=== PATIENT | male | born 1960 | race Caucasian/White ===

== ENCOUNTER 2020-08-06 18:30 | Emergency (ER) | payer MEDICAID ==
[2020-08-06] MEDS ORDERED: Sodium Chloride 0.9% 2.5 ML Syringe FLUSH PRN (18:55)
[2020-08-06] MEDS ORDERED: Sodium Chloride 0.9% 10 ML Syringe FLUSH PRN (18:55)
[2020-08-06] MEDS ORDERED: Aspirin 81 MG Tab.Chew PO ONE (18:55)
[2020-08-06] MEDS ORDERED: Heparin Sodium 5,000 Units/ML Vial IVPUSH ONE (19:16)
[2020-08-06] MEDS ORDERED: Heparin Sodium/0.45% NaCl 500 ML ONE (19:19)
[2020-08-06] MEDS ORDERED: Heparin Sodium/0.45% NaCl 500 ML IV SCH (19:30)
[2020-08-06 19:50] LABS: BLOOD UREA NITROGEN,BUN 15 mg/dL (7.0-18.0); CARBON DIOXIDE,CO2 22.7 mmol/L (21.0-32.0); CHLORIDE,CL 104 mmol/L (98-107); GLUCOSE RANDOM 143 mg/dL (74-106); POTASSIUM,K 3.7 mmol/L (3.5-5.1); SODIUM,NA 140 mmol/L (136-148)
--- NOTE | 2020-08-06 21:45 | EDM.PDOC ---
ED HPI GENERAL MEDICAL PROBLEM - General Chief Complaint: Chest Pain Stated Complaint: CHEST PAIN, TINGLING Time Seen by Provider: 08/06/20 18:55 - History of Present Illness INITIAL COMMENTS - FREE TEXT/NARRATIVE: CHIEF COMPLAINT(S): Chest pain HISTORY OF PRESENT ILLNESS: This is a 59-year-old man with a past medical history of hiatal hernia, hypertension who comes to the emergency department with a chief complaint of chest pain. The patient states that approximately 5 hours prior to arrival he started to experience severe 10 out of 10 chest pain which she describes as sharp associated with shortness of breath but denies any nausea, vomiting, or diaphoresis. He states that since that time the pain has improved to 3 out of 10. He states that he does feel dizzy but denies any syncope. He states that the pain is not exacerbated by anything and there are no relieving symptoms other than he took a nap and it seemed to improve slightly. He states that he may be having a heart attack. He denies any history of CAD or CHF. He denies any recent travel, recent surgery, prior history of DVT or PE. In addition to this he states that he has been having bright red bloody stools for the past 2 years however it worsened recently. He denies any abdominal pain, hematemesis, bilious emesis. REVIEW OF SYSTEMS: Constitutional: Denies fever, chills. Eyes: Denies eye pain Ears, Nose, Mouth, & Throat: Denies earache Cardiovascular: Positive for chest pain and presyncope Respiratory: Denies shortness of breath Gastrointestinal: Positive for bright red blood in stool. Denies nausea, vomiting, diarrhea, melena, hematemesis, bilious emesis Genitourinary: Denies hematuria Skin:Denies a rash MSK: Denies joint pain Neurological: Denies blurred vision, numbness, tingling, weakness Psychiatric: Denies depression PAST MEDICAL HISTORY: As per history of present illness and as reviewed below otherwise noncontributory. SURGICAL HISTORY: As per history of present illness and as reviewed below otherwise noncontributory. SOCIAL HISTORY: As per history of present illness and as reviewed below otherwise noncontributory. FAMILY HISTORY: As per history of present illness and as reviewed below otherwise noncontributory. EXAMINATION OF ORGAN SYSTEMS/BODY AREAS: Constitutional: Blood pressure was 91/57, heart rate 72, respiratory rate 16 with an oxygen saturation 97% on room air. Temperature 36.1 General: Middle-aged gentleman who is pale appearing but in no acute distress. Psychiatric: Appropriate mood and affect. Eyes: No scleral icterus or conjunctival erythema pupils equal round reactive to light. ENMT: Moist mucous membranes. No pharyngeal erythema Cardiovascular: Regular, rate, and rhythm. No gallops, murmurs, or rubs. Bilateral upper extremity pulses symmetric and intact. No peripheral edema. No JVD. Respiratory: Lungs clear to auscultation bilaterally. No wheezes, rales, or rhonchi. Gastrointestinal: Soft, non-tender, non-distended. Normoactive bowel sounds no rebound or guarding. Genitourinary: No suprapubic tenderness Musculoskeletal: Normal range of motion. Skin: No lesions or abrasions. Neurological: Alert, GCS 15 MEDICAL DECISION MAKING AND COURSE IN THE ED WITH INTERPRETATION/REVIEW OF DIAGNOSTIC STUDIES: This is a 59-year-old man with a past medical history of hiatal hernia who comes to the emergency department with bright red bloody stools and acute chest pain. EKG was obtained in triage which did reveal an acute STEMI. Therefore we provide the patient with aspirin at this time. Will obtain cardiac work-up. Given the national breast pressure we did hold off on nitroglycerin administration. We will repeat the patient's blood pressure Time: 1842 Twelve-lead EKG interpreted by myself. Normal sinus rhythm at a rate of 71beats per minute. Normal axis. [place] interval is 172ms. QRS duration is 104ms. ST segments are elevated greater than 1 mm in aVR with [address] depression in leads V3, V4, V5, lead II, lead III, and lead aVF.. Deepen T wave inversion in aVR. No Q waves present. Hypertrophy not noted. This is significantly changed from March 03, 2016. Interpretation: Acute STEMI suspect proximal LAD At this time I contacted [facility] in [place]. At this time I did not provide the patient with thrombolytics given his bright red blood per rectum. The patient does have signs of hemorrhoids however they are not actively bleeding. I spoke with Dr. Martinez who accepted the transfer. At the time of my discussion with him the hemoglobin was stable and the patient was not tachycardic and his blood pressure was approximately 100/60. He recommended heparin bolus and heparin infusion at this time and transfer for urgent catheterization. I spoke with Dr. Bermudez who accepted the transfer. The patient was flown via helicopter Laboratory: CBC reveals a leukocytosis of 16.04 with neutrophilic predominance without any segmented neutrophils. Coags are within normal limits. CMP reveals hyperglycemia at 143, mild elevation in AST at 48 and a troponin of 0.088. Time: 1900 Twelve-lead EKG interpreted by myself. Normal sinus rhythm at a rate of 67beats per minute. Normal axis. [place] interval is 182ms. QRS duration is 102ms. ST segm ents are elevated in lead aVR greater than [address] depression in V3, V4, V5, V6, leads I, lead II.. Deepening T wave in lead aVR no Q waves present. Hypertrophy not noted. No changes demonstrated from prior EKG dated today. Interpretation: Acute STEMI concerning for proximal LAD occlusion DISPOSITION: The patient was sent to [facility] in [place] in stable yet serious condition CONDITION: Serious PROCEDURES: satellite project site monitor interpretation, pulse oximetry interpretation FINAL IMPRESSION(S)/DIAGNOSES: 1. Acute STEMI, likely proximal LAD 2. Acute GI bleeding, suspect lower GI bleed Critical Care Procedure Note Authorized and performed by: Mk Lindsay M.D. Critical Care Time: 35 minutes Due to a high probability of clinically significant, life threatening deterioration, the patient required my highest level of preparedness to intervene emergently and I personally spent this critical care time directly and personally managing the patient. This critical care time included obtaining a history, examining the patient, pulse oximetry; ordering and review of studies; arranging urgent treatment with development of a management plan; evaluation of a patients reponse to treatment; frequent assessment; and discussions with other providers. This critical care time was performed to assess and manage the high probability of imminent, life threatening deterioration that could result in multiorgan failure. It was exclusive of separate billable procedures and treating other patients. Please see MDM section and rest of the note for further information on patient assessment and treatment. Please see MDM section and rest of the note for further information on patient assessment and treatment. Mk Lindsay M.D. chest Pain Score (Numeric/FACES): 4 - Related Data Allergies Allergy/AdvReac Type Severity Reaction Status Date / Time No Known Allergies Allergy Verified 08/06/20 19:05 Home Meds: Home Meds . [No Known Home Meds] 03/03/16 [History] Past Medical History Cardiovascular History: Reports: High Cholesterol, Hypertension Gastrointestinal History: Reports: Hiatal Hernia - Past Surgical History HEENT Surgical History: Reports: Tonsillectomy GI Surgical History: Reports: Hernia, Inguinal, Hernia Repair/Other Musculoskeletal Surgical History: Reports: Shoulder Surgery Social & Family History - Family History Family Medical History: Unobtainable - Caffeine Use Caffeine Use: Reports: None - Recreational Drug Use Recreational Drug Use: No ED ROS GENERAL - Review of Systems Review Of Systems: See Below ED EXAM, GENERAL - Physical Exam Exam: See Below Course - Vital Signs Last Recorded V/S: Last Vital Signs Temp 36.1 C 08/06/20 18:55 Pulse 64 08/06/20 19:11 Resp 14 08/06/20 19:11 BP 100/55 L 08/06/20 19:11 Pulse Ox 95 08/06/20 19:11 - Orders/Labs/Meds Orders: Active Orders 24 hr Category Date Time Status Cardiac Monitoring [RC] . DIRECTED Care 08/06/20 18:55 Active EKG Documentation Completion [RC] STAT Care 08/06/20 18:38 Active Oxygen Therapy, ED [RC] ASDIRECTED Care 08/06/20 18:55 Active Heparin Sodium/0.45% NaCl [Heparin 25,000 Units in 1/2 Med 08/06/20 19:30 Active NS 500 ML] 500 ml IV TITRATE Sodium Chloride 0.9% [Saline Flush] Med 08/06/20 18:55 Active 10 ml FLUSH ASDIRECTED PRN Sodium Chloride 0.9% [Saline Flush] Med 08/06/20 18:55 Active 2.5 ml FLUSH ASDIRECTED PRN Saline Lock Insert [OM.PC] Stat Oth 08/06/20 18:55 Ordered Medication Orders Heparin Sodium/Sodium Chloride (Heparin 25,000 Units In 1/2 Ns 500 Ml) 500 mls @ 28.968 mls/hr IV TITRATE ANSHU; Protocol Last Admin: 08/06/20 19:22 Dose: 12 units/kg/hr, 28.968 mls/hr Documented by: ISABELLE Cosigned by: CHRISTIE Sodium Chloride (Saline Flush) 10 ml FLUSH ASDIRECTED PRN PRN Reason: Keep Vein Open Last Admin: 08/06/20 19:02 Dose: 10 ml Documented by: ISABELLE Sodium Chloride (Saline Flush) 2.5 ml FLUSH ASDIRECTED PRN PRN Reason: Keep Vein Open Last Admin: 08/06/20 19:02 Dose: 2.5 ml Documented by: ISABELLE Labs: Laboratory Tests 08/06/20 08/06/20 08/06/20 Range/Units 18:58 18:58 19:15 WBC Cancelled RBC Cancelled Hgb Cancelled Hct Cancelled MCV Cancelled MCH Cancelled MCHC Cancelled RDW Std Deviation Cancelled RDW Coeff of Juan R Cancelled Plt Count Cancelled MPV Cancelled Neut % (Auto) Cancelled Lymph % (Auto) Cancelled [place] % (Auto) Cancelled Eos % (Auto) Cancelled Baso % (Auto) Cancelled Neut # (Auto) Cancelled Lymph # (Auto) Cancelled [place] # (Auto) Cancelled Eos # (Auto) Cancelled Baso # (Auto) Cancelled Add Manual Diff Cancelled Nucleated RBC % Cancelled Nucleated RBCs # Cancelled INR APTT (18.6-31.3) SEC Sodium 140 (136-148) mmol/L Potassium 3.7 (3.5-5.1) mmol/L Chloride 104 (98-107) mmol/L Carbon Dioxide 22.7 (21.0-32.0) mmol/L BUN 15 (7.0-18.0) mg/dL Creatinine 1.2 (0.8-1.3) mg/dL Est Cr Clr Drug Dosing 64.64 mL/min Estimated GFR (MDRD) > 60.0 ml/min Glucose 143 H (74-106) mg/dL POC Glucose 112 H (60-110) mg/dL Calcium 9.2 (8.5-10.1) mg/dL Total Bilirubin 0.5 (0.2-1.0) mg/dL AST 48 H (15-37) IU/L ALT 29 (14-63) IU/L Alkaline Phosphatase 68 (46-116) U/L Troponin I 0.088 H* (0.000-0.056) ng/mL Total Protein 7.2 (6.4-8.2) g/dL Albumin 3.9 (3.4-5.0) g/dL Globulin 3.3 (2.6-4.0) g/dL Albumin/Globulin Ratio 1.2 (0.9-1.6) 08/06/20 08/06/20 08/06/20 Range/Units 19:20 19:20 19:20 WBC 16.04 H RBC 4.78 Hgb 13.9 Hct 42.5 MCV 88.9 MCH 29.1 MCHC 32.7 RDW Std Deviation 46.0 RDW Coeff of Juan R 14 Plt Count 254 MPV 9.80 Neut % (Auto) 84.5 H Lymph % (Auto) 10.2 L [place] % (Auto) 4.9 Eos % (Auto) 0.1 Baso % (Auto) 0.3 Neut # (Auto) 13.6 H Lymph # (Auto) 1.6 [place] # (Auto) 0.8 Eos # (Auto) 0.0 Baso # (Auto) 0.1 Add Manual Diff Nucleated RBC % 0.0 Nucleated RBCs # 0 INR 1.12 APTT 23.4 (18.6-31.3) SEC Sodium (136-148) mmol/L Potassium (3.5-5.1) mmol/L Chloride (98-107) mmol/L Carbon Dioxide (21.0-32.0) mmol/L BUN (7.0-18.0) mg/dL Creatinine (0.8-1.3) mg/dL Est Cr Clr Drug Dosing mL/min Estimated GFR (MDRD) ml/min Glucose (74-106) mg/dL POC Glucose (60-110) mg/dL Calcium (8.5-10.1) mg/dL Total Bilirubin (0.2-1.0) mg/dL AST (15-37) IU/L ALT (14-63) IU/L Alkaline Phosphatase (46-116) U/L Troponin I (0.000-0.056) ng/mL Total Protein (6.4-8.2) g/dL Albumin (3.4-5.0) g/dL Globulin (2.6-4.0) g/dL Albumin/Globulin Ratio (0.9-1.6) Meds: Medications Generic Name Dose Route Start Last Admin Trade Name Freq PRN Reason Stop Dose Admin Heparin Sodium/Sodium Chloride 500 mls @ 28.968 mls/hr 08/06/20 19:30 08/06/20 19:22 Heparin 25,000 Units In 1/2 Ns 500 Ml IV 12 units/kg/hr TITRATE ANSHU 28.968 mls/hr Administration Protocol 12 UNITS/KG/HR Sodium Chloride 10 ml 08/06/20 18:55 08/06/20 19:02 Saline Flush FLUSH 10 ml ASDIRECTED PRN Administration Keep Vein Open Sodium Chloride 2.5 ml 08/06/20 18:55 08/06/20 19:02 Saline Flush FLUSH 2.5 ml ASDIRECTED PRN Administration Keep Vein Open Discontinued Medications Generic Name Dose Route Start Last Admin Trade Name Freq PRN Reason Stop Dose Admin Aspirin 324 mg 08/06/20 18:55 08/06/20 19:01 Aspirin PO 08/06/20 18:56 324 mg ONETIME ONE Administration Heparin Sodium (Porcine) 5,000 units 08/06/20 19:16 08/06/20 19:20 Heparin Sodium IVPUSH 08/06/20 19:17 5,000 units ONETIME ONE Administration Heparin Sodium/Sodium Chloride Confirm 08/06/20 19:19 08/06/20 19:23 Heparin 25,000 Units In 1/2 Ns 500 Ml Administered 08/06/20 19:20 Not Given Dose 500 mls @ as directed .ROUTE .STK-MED ONE Departure - Departure Time of Disposition: 19:44 Disposition: DC/Tfer to Acute Hospital 02 Reason for Transfer *Q: Primary PCI Indicated Condition: Serious Clinical Impression: STEMI (ST elevation myocardial infarction) Referrals: PCP,None [Primary Care Provider] - Sepsis Event Note (ED) - Evaluation Sepsis Screening Result: No Definite Risk - Focused Exam Vital Signs: Vital Signs Temp Pulse Resp BP Pulse Ox 08/06/20 19:11 64 14 100/55 L 95 08/06/20 18:55 36.1 C 72 16 91/57 L 97
[2020-08-06 22:05] VITALS: BP 132/69; PULSE 65
== END 2020-08-06 21:45 ==
LOC: MW.ED 18:30
DX: I21.3 ST elevation (STEMI) myocardial infarction of unspecified site (principal); K92.2 Gastrointestinal hemorrhage, unspecified; I10 Essential (primary) hypertension
CPT/HCPCS: 36415; 80053; 82962; 84484; 85025; 85610; 85730; 93005; 96365; 96366; 99285; A9270; J1644; 93010; 99291